=== PATIENT | male | born 1940 | race Caucasian/White ===

== ENCOUNTER → 2017-06-06 | Outpatient (CLI) | payer OTHER | END | disposition home or self-care (01) | LOC: XY 07:36 | PROVIDERS: ATTEND Surgery | DX: R10.9 Unspecified abdominal pain (principal) | CPT/HCPCS: 78226; A9537 ==

== ENCOUNTER → 2017-06-25 | Day surgery (SDC) | payer OTHER ==
[2017-06-21 12:50] LABS: Basophils # (auto) 0 uL; Basophils % (auto) 0.5 % (0.0-2.0); Eosinophils # (auto) 0.1 uL; Mean Platelet Volume 8.3 fL (6.9-10.8); Monocytes # (auto) 0.9 uL
[2017-06-21 12:52] LABS: Eosinophils % (auto) 1.5 % (0.0-7.0); Hematocrit 41.9 % (41.0-53.0); Hemoglobin 14.3 g/dL (13.5-17.5); Lymphocytes # (auto) 1.8 uL; Lymphocytes % (auto) 24.5 % (10.0-50.0); Mean Corpuscular Hemoglobin 34.1 pg (28.0-32.0); Mean Corpuscular Hgb Conc. 34.3 g/dL (32.0-36.0); Mean Corpuscular Volume 99.5 fL (80.0-100.0); Monocytes % (auto) 12.3 % (0.0-12.0); Neutrophils # (auto) 4.6 uL; Neutrophils % (auto) 61.2 % (37.0-80.0); Platelet Count (auto) 230 10^3/uL (140-450); White Blood Cell 7.5 10^3/uL (4.4-10.8)
[2017-06-21 13:03] LABS: INR 0.97 (0.9-1.15); Prothrombin Time 10.6 sec (9.37-12.3)
[~2017-06-25] VITALS: Ht 190.5 cm; Wt 101.6 kg
[~2017-06-25] MED LIST: FEBU40TA PO; LIDOCAINE VISCOUS 2% 15ML UD ONE; LISI-646 PO; MIDAZOLAM HCL 5 MG/ML-1ML VIAL ONE; SIMV-8 PO; SODIUM CHLORIDE LOCK 10 ML ONE; diphenhdrAMINE HCL 50 MG/1 ML VL ONE; fentaNYL CITRATE 100 MCG/2 ML VL ONE
[2017-06-25] MEDS: fentaNYL CITRATE 100 MCG/2 ML VL ONE ×3 (12:26→12:39)
[2017-06-25] MEDS: MIDAZOLAM HCL 5 MG/ML-1ML VIAL ONE ×3 (12:26→12:39)
[2017-06-25 13:29] VITALS: BP 139/51
== END | disposition home or self-care (01) ==
LOC: SUR 09:08
PROVIDERS: ATTEND Internal Medicine Gastroenterology
DX: Z12.11 Encounter for screening for malignant neoplasm of colon (principal); K57.30 Diverticulosis of large intestine without perforation or abscess without bleeding; K29.50 Unspecified chronic gastritis without bleeding; Z90.49 Acquired absence of other specified parts of digestive tract
CPT/HCPCS: 36415; 43239; 45378; 85025; 85610; J1200; J2250; J3010; 99152